=== PATIENT | male | born 1975 | race Caucasian/White ===

== ENCOUNTER → 2019-01-27 11:09 | Outpatient (POV) | payer OTHER, SELFPAY | PROVIDERS: Visit Provider Dermatology | DX: Z00.00 Encounter for general adult medical examination without abnormal findings (principal) ==

== ENCOUNTER → 2019-08-05 15:04 | Outpatient (CLI) | payer BC, SELFPAY | PROVIDERS: PCP Family Medicine; Visit Provider Family Medicine | DX: R40.4 Transient alteration of awareness (principal) | CPT/HCPCS: 93306 ==

== ENCOUNTER → 2021-10-11 11:47 | Outpatient (CLI) | payer BC, SELFPAY ==
[2021-10-12 16:49] LABS: Albumin 4.1 g/dL (2.9-4.4); Alpha-1-Globulin 0.2 g/dL (0.0-0.4); Alpha-2-Globulin 0.6 g/dL (0.4-1.0); Gamma Globulin 2.6 g/dL (0.4-1.8); Protein, Total 8.5 g/dL (6.0-8.5)
== END ==
PROVIDERS: PCP Family Medicine; Visit Provider Family Medicine
DX: R53.1 Weakness (principal); E88.09 Other disorders of plasma-protein metabolism, not elsewhere classified
CPT/HCPCS: 36415; 84155; 84165; 93225; 93226

== ENCOUNTER → 2021-10-21 09:33 | Outpatient (CLI) | payer BC, SELFPAY ==
[2021-10-21 10:26] LABS: Basophils # 0.1 K/mm3 (0-0.2); Basophils % 2.6 % (0.1-2.0); Eosinophils # 0.2 K/mm3 (0.0-0.4); Eosinophils % 3.2 % (0.1-12.0); Hematocrit 40.6 % (42.0-52.0); Hemoglobin 13.5 g/dL (14.1-18.0); Lymphocytes # 1.5 K/mm3 (0.7-4.5); Lymphocytes % 27.2 % (10-50); Mean Corpuscular HGB Conc 33.3 g/dL (31.8-35.4); Mean Corpuscular Hemoglobin 30.7 pg (27.0-31.2); Mean Corpuscular Volume 92.3 fl (80-94); Mean Platelet Volume 8.4 fl (7.4-10.4); Monocytes # 0.5 K/mm3 (0.1-1.0); Monocytes % 9.7 % (1.7-9.3); Neutrophils # 3.1 K/mm3 (1.8-7.8); Neutrophils % 57.3 % (37.0-80.0); Platelet Count 313 K/mm3 (142-424); Red Cell Distribution Width 13.4 % (11.5-17.5); White Blood Count 5.4 K/mm3 (4.8-10.8)
[2021-10-21 11:31] LABS: Alanine Aminotransferase 26 U/L (12-78); Albumin Level 4.5 g/dl (3.5-5.0); Albumin/Globulin Ratio 1.2 (1.1-1.8); Alkaline Phosphatase 76 U/L (38-126); Anion Gap 11.2 mEq/L (5-15); Aspartate Amino Transferase 31 U/L (17-59); Bilirubin,Total 0.4 mg/dl (0.2-1.3); Blood Urea Nitrogen 14 mg/dl (9-20); Calcium 9.2 mg/dl (8.4-10.2); Carbon Dioxide 27 mmol/L (22.0-30.0); Chloride 105 mmol/L (98-107); Chol/HDL Ratio 5.1 (1-3.5); Cholesterol 175 mg/dl (140-200); Estimated Glomerular Filt Rate 80 ml/min (>60); GFR (African American) 97 ML/MIN (>60); Globulin 3.7 g/dL (1.3-3.2); Glucose 94 mg/dl (74-100); HDL Cholesterol 34 mg/dl (40-60); Potassium 4.2 mmoL/L (3.5-5.1); Sodium 139 mmol/L (136-145); Total Protein,Serum 8.2 g/dl (6.3-8.2); Triglycerides 144 mg/dl (30-150); Uric Acid 5.6 mg/dl (3.5-8.5); VLDL Cholesterol 29 mg/dL (0-40)
[2021-10-21 11:43] LABS: C-Reactive Protein 0.6 mg/L (0-4); Direct LDL Cholesterol 86.57 mg/dL (100-129)
[2021-10-21 12:02] LABS: Thyroid Stimulating Hormone 1.59 uIU/mL (0.465-4.68)
[2021-10-21 12:54] LABS: Iron 125 ug/dL (49-181)
[2021-10-21 14:10] LABS: Erythrocyte Sedimentation Rate 37 mm/hr (0-15)
[2021-10-23 15:10] LABS: RA Latex Turbid. 61.2 IU/mL (<14.0)
[2021-10-24 08:34] LABS: Hepatitis C Antibody <0.1 s/co ratio (0.0-0.9)
[2021-10-24 12:23] LABS: Speckled Pattern >1:1280 (.)
[2021-10-28 19:49] LABS: Antinuclear Antibodies, IFA POSITIVE
== END ==
PROVIDERS: PCP Family Medicine; Visit Provider Family Medicine
DX: E88.09 Other disorders of plasma-protein metabolism, not elsewhere classified (principal); R53.1 Weakness; D89.2 Hypergammaglobulinemia, unspecified; Z13.220 Encounter for screening for lipoid disorders
CPT/HCPCS: 36415; 80053; 80061; 83540; 84443; 84550; 85025; 85651; 86038; 86140; 86431; 87380

== ENCOUNTER → 2021-11-08 07:37 | Outpatient (CLI) | payer BC, SELFPAY ==
--- NOTE | 2021-11-08 | CA_ITS ---
APPROVED REPORT Exam: Exercise Treadmill Technologist: Krystin Jaimes, Ht: 5 ft 11 in Wt: 173 lbs BSA: 1.98 m2 HR: 68 bpm BP: 128/67 mmHg Medical History Medications: Vitamins,,,,, Citlaporam,,,,, Stress Test Details Test: Srinath HR Resting HR: 71 bpm Max Heart Rate (APMHR): 174.302511 bpm Max HR Achieved: 184 bpm Target HR (85% APMHR): 147.378531 bpm % of APMHR: 105.75 Recovery HR: 117 bpm BP Resting BP: 130/64 mmHg Max BP: 170/64 mmHg Recovery BP: 135.0/64.0 mmHg ECG Resting ECG: NSR, rightward axis Clinical Exercise duration: 10:09 min Highest Stage Achieved: IV Exercise capacity: 12.8 METs Stress ECG Conclusion Exercised 10:09 into stage 4 of Srinath Protocol. Max HR: 184 % of PM: 106% Max BP: 170/64 METs: 12.8 Test stopped due to: SOA, leg fatigue Symptoms: lightheaded, nausea, mild chest tightness. Arrhythmias/Ectopy: Rare PVC. ST-T Changes: -1.5mm horizontal & downsloping ST depression inferiorly. Conclusion: EKG changes (+) for ischemia. GXT only (no imaging) Test Summary RECOVERY 05:33 0.0 0.0 117 . 135/ 64 . . REST . . . . . . . Standing REST 04:53 0.0 0.0 71 . 130/ 64 . . Stage 1 01:00 10.0 1.7 97 . . . . Stage 1 02:00 10.0 1.7 103 . . . . Stage 1 03:00 10.0 1.7 109 . 152/ 80 . . Stage 2 01:00 12.0 2.5 118 . . . . Stage 2 02:00 12.0 2.5 130 . . . . Stage 2 03:00 12.0 2.5 127 . 160/ 62 . . Stage 3 01:00 14.0 3.4 143 . . . . Stage 3 02:00 14.0 3.4 158 . . . . Stage 3 03:00 14.0 3.4 165 . 170/ 64 . . Stage 4 01:00 16.0 4.2 183 . . . . Stage 4 01:09 16.0 4.2 184 . . . Stop exercise at 10:09 RECOVERY 01:00 0.0 0.0 172 . . . . RECOVERY 02:00 0.0 0.0 143 . . . . RECOVERY 03:00 0.0 0.0 124 . 147/ 69 . . RECOVERY 04:00 0.0 0.0 115 . 149/ 74 . . RECOVERY 05:00 0.0 0.0 112 . 149/ 74 . . RECOVERY 05:33 0.0 0.0 117 . 135/ 64 . . Electronically signed by : Holden Gross MD 11/08/2021 16:52:28
== END ==
PROVIDERS: PCP Family Medicine; Visit Provider Family Medicine
DX: R07.89 Other chest pain (principal)
CPT/HCPCS: 93017

== ENCOUNTER → 2021-11-21 07:24 | Outpatient (CLI) | payer BC, SELFPAY ==
[2021-11-21 08:08] LABS: Basophils # 0.2 K/mm3 (0-0.2); Basophils % 2.7 % (0.1-2.0); Eosinophils # 0.2 K/mm3 (0.0-0.4); Eosinophils % 3.9 % (0.1-12.0); Hematocrit 41.4 % (42.0-52.0); Hemoglobin 13.8 g/dL (14.1-18.0); Lymphocytes # 1.6 K/mm3 (0.7-4.5); Lymphocytes % 27.6 % (10-50); Mean Corpuscular HGB Conc 33.3 g/dL (31.8-35.4); Mean Corpuscular Hemoglobin 31.3 pg (27.0-31.2); Mean Corpuscular Volume 93.9 fl (80-94); Mean Platelet Volume 8.3 fl (7.4-10.4); Monocytes # 0.6 K/mm3 (0.1-1.0); Monocytes % 10.2 % (1.7-9.3); Neutrophils # 3.2 K/mm3 (1.8-7.8); Neutrophils % 55.7 % (37.0-80.0); Platelet Count 269 K/mm3 (142-424); Red Blood Count 4.41 M/mm3 (4.60-6.20); Red Cell Distribution Width 13.5 % (11.5-17.5); White Blood Count 5.8 K/mm3 (4.8-10.8)
[2021-11-21 08:58] LABS: Anion Gap 10.3 mEq/L (5-15); Blood Urea Nitrogen 13 mg/dl (9-20); Calcium 9.1 mg/dl (8.4-10.2); Carbon Dioxide 30 mmol/L (22.0-30.0); Chloride 106 mmol/L (98-107); Estimated Glomerular Filt Rate 80 ml/min (>60); GFR (African American) 97 ML/MIN (>60); Glucose 96 mg/dl (74-100); Potassium 4.3 mmoL/L (3.5-5.1); Sodium 142 mmol/L (136-145)
== END ==
PROVIDERS: PCP Family Medicine; Visit Provider Physician Assistant
DX: Z01.812 Encounter for preprocedural laboratory examination (principal); Z20.822 Contact with and (suspected) exposure to COVID-19; R07.89 Other chest pain; R55 Syncope and collapse; R10.9 Unspecified abdominal pain; R23.2 Flushing; R94.31 Abnormal electrocardiogram [ECG] [EKG]; R94.39 Abnormal result of other cardiovascular function study
CPT/HCPCS: 36415; 80048; 85025; C9803; U0003; U0005

== ENCOUNTER 2021-11-22 09:54 | Day surgery (SDC) | payer BC, SELFPAY ==
[2021-11-22] VITALS (13 sets, daily range): BP systolic 109–138; BP diastolic 62–87; PULSE 62–75; RESP 17–19; TEMP 36.9; O2SAT 95–98; BMI 25.1
--- NOTE | 2021-11-22 | IR_ITS ---
APPROVED REPORT Patient Location: Outpatient PROCEDURES Left heart catheterization Left ventriculogram Selective coronary angiogram INDICATION Angina pectoris, Abnormal stress test Informed consent was obtained prior to the procedure. COMPLICATIONS NONE Estimated Blood Loss: LESS THAN 10 ML TECHNIQUE One percent lidocaine used to anesthetize the right anterior aspect of the wrist. The right radial artery was accessed via the Seldinger technique. A 6 Maori sheath was placed in the right radial artery. 2.5 mg of verapamil, 800 mcg of nitroglycerin, 1mg Lidocaine and 5000 U Heparin were given through the arterial sheath. The papa catheter was also used to perform left heart catheterization, left ventriculogram and selective coronary angiogram. At the end of the procedure the sheath was removed good hemostasis was achieved using Traclet band, patient was transferred to the postop holding area in stable condition. ANGIOGRAPHIC RESULTS The left main artery Normal The left anterior descending artery Normal The circumflex artery Normal The right coronary artery Dominant normal The TREJO ventriculogram reveals Normal 65% The left ventricular end-diastolic pressure 10 mmHg IMPRESSION Normal coronary arteries Normal ejection fraction Normal left ventricular end-diastolic pressure PLAN 1. Evaluation of noncardiac symptoms Electronically signed by : Jonathan Wang MD 11/22/2021 11:41:45
== END 2021-11-22 15:20 | disposition home or self-care (01) ==
LOC: CATHLAB 09:55
PROVIDERS: PCP Family Medicine; Visit Provider Internal Medicine
DX: R94.39 Abnormal result of other cardiovascular function study (principal); Z79.899 Other long term (current) drug therapy; R07.89 Other chest pain; R06.02 Shortness of breath; Z82.49 Family history of ischemic heart disease and other diseases of the circulatory system; R55 Syncope and collapse; R23.2 Flushing
CPT/HCPCS: 93458; 99152; C1725; C1769; J1644; Q9967

== ENCOUNTER → 2021-12-12 09:43 | Outpatient (CLI) | payer BC, SELFPAY ==
--- NOTE | 2021-12-12 09:48 | CT_ITS ---
FINAL REPORT TECHNIQUE: Axial images were obtained from the lung bases through the pubic symphysis before and after the administration of intravenous contrast. This study was performed with techniques to keep radiation doses as low as reasonably achievable (ALARA). Individualized dose reduction techniques using automated exposure control or adjustment of mA and/or kV according to the patient's size were employed. CLINICAL HISTORY: VASOVAGAL EPISODE,LEUKOPENIA,CHRONIC DIARRHEA..75 cc of isovue 370 saline flush FINDINGS: Precontrast images demonstrate no evidence of nephrolithiasis or hydronephrosis. There are calcified granulomas in the spleen. Abdomen: The lung bases are clear. The liver parenchyma is homogeneous. The gallbladder is present. The spleen, pancreas and adrenal glands are unremarkable. The kidneys enhance normally. There is no mass or adenopathy identified. There is no evidence of bowel obstruction. There are scattered diverticula throughout the sigmoid colon. Pelvis: The appendix is normal. The urinary bladder is unremarkable. There is no mass, free fluid or adenopathy. There is mucosal thickening of the rectum up to 1 cm concerning for acute proctitis. IMPRESSION: Mucosal thickening of the rectum concerning for acute proctitis. Reviewed, Interpreted and Dictated by Aki Bryan MD Transcribed by Scooter Saldaña Authenticated and [facility]
== END ==
PROVIDERS: PCP Family Medicine; Visit Provider Family Medicine
DX: R55 Syncope and collapse (principal); E88.09 Other disorders of plasma-protein metabolism, not elsewhere classified; D72.819 Decreased white blood cell count, unspecified; K52.9 Noninfective gastroenteritis and colitis, unspecified
CPT/HCPCS: 74170; Q9967

== ENCOUNTER → 2022-07-04 08:03 | Outpatient (CLI) | payer BC, SELFPAY ==
--- NOTE | 2022-07-04 | US_ITS ---
FINAL REPORT CLINICAL HISTORY: RUQ PAIN COMPARISON: None FINDINGS: Sonographic images of the right upper quadrant were obtained. The pancreas is partially obscured. The liver is fatty infiltrated. The gallbladder appears normal without evidence of gallstones.There is no evidence of biliary ductal dilatation.The common duct measures 2 mm. Limited images of the right kidney are unremarkable. IMPRESSION: Fatty infiltration of the liver. Reviewed, Interpreted and Dictated by David Mercer III, MD Transcribed by Ximena Joe Authenticated and [facility]
== END ==
PROVIDERS: PCP Family Medicine; Visit Provider Family Medicine
DX: R10.11 Right upper quadrant pain (principal)
CPT/HCPCS: 76705

== ENCOUNTER 2024-03-03 07:44 | Outpatient (CLI) | payer BC, SELFPAY ==
--- NOTE | 2024-03-03 07:54 | US_ITS ---
FINAL REPORT CLINICAL HISTORY: RUQ PAIN COMPARISON: 07/04/2022 FINDINGS: Sonographic images of the right upper quadrant were obtained. The pancreas is partially obscured. Fatty infiltration of the liver is present. The gallbladder appears normal without evidence of gallstones.There is no evidence of biliary ductal dilatation.The common duct measures 4mm. Limited images of the right kidney are unremarkable. IMPRESSION: Fatty infiltration of the liver, no acute intra-abdominal abnormality identified. Reviewed, Interpreted and Dictated by Aki Bryan MD Transcribed by Evelyne Villegas Authenticated and . [facility]
[2024-03-03 08:59] LABS: Basophils # 0.1 K/mm3 (0-0.2); Basophils % 1.2 % (0.1-2.0); Eosinophils # 0.1 K/mm3 (0.0-0.4); Eosinophils % 2.5 % (0.1-12.0); Hematocrit 42.6 % (42.0-52.0); Hemoglobin 13.9 g/dL (14.1-18.0); Lymphocytes # 1.5 K/mm3 (0.7-4.5); Lymphocytes % 30.1 % (10-50); Mean Corpuscular HGB Conc 32.6 g/dL (31.8-35.4); Mean Corpuscular Hemoglobin 31.7 pg (27.0-31.2); Mean Corpuscular Volume 97.1 fl (80-94); Mean Platelet Volume 8.6 fl (7.4-10.4); Monocytes # 0.5 K/mm3 (0.1-1.0); Monocytes % 10.6 % (1.7-9.3); Neutrophils # 2.8 K/mm3 (1.8-7.8); Neutrophils % 55.5 % (37.0-80.0); Platelet Count 260 K/mm3 (142-424); Red Blood Count 4.38 M/mm3 (4.60-6.20); Red Cell Distribution Width 13.6 % (11.5-17.5); White Blood Count 5.1 K/mm3 (4.8-10.8)
[2024-03-03 09:19] LABS: Erythrocyte Sedimentation Rate 26 mm/hr (0-15)
[2024-03-03 09:30] LABS: Alanine Aminotransferase 22 U/L (12-78); Albumin Level 4.4 g/dl (3.5-5.0); Albumin/Globulin Ratio 1.3 (1.1-1.8); Alkaline Phosphatase 60 U/L (38-126); Aspartate Amino Transferase 29 U/L (17-59); Bilirubin,Total 0.4 mg/dl (0.2-1.3); Blood Urea Nitrogen 15 mg/dl (9-20); Calcium 9.3 mg/dl (8.4-10.2); Carbon Dioxide 31 mmol/L (22.0-30.0); Chloride 106 mmol/L (98-107); Chol/HDL Ratio 4.6 (1-3.5); Cholesterol 175 mg/dl (140-200); Estimated Glomerular Filt Rate 80 ml/min (>60); GFR (African American) 97 ML/MIN (>60); Globulin 3.4 g/dL (1.3-3.2); Glucose 90 mg/dl (74-100); HDL Cholesterol 38 mg/dl (40-60); Sodium 140 mmol/L (136-145); Total Protein,Serum 7.8 g/dl (6.3-8.2); Triglycerides 136 mg/dl (30-150); Uric Acid 4.7 mg/dl (3.5-8.5); VLDL Cholesterol 27 mg/dL (0-40)
[2024-03-03 09:41] LABS: C-Reactive Protein 0.5 mg/L (0-4); Direct LDL Cholesterol 91.89 mg/dL (100-129)
[2024-03-03 09:49] LABS: Hemoglobin A1C 5.4 % (4.0-6.0)
[2024-03-03 10:30] LABS: Ferritin 100 ng/ml (17.9-464)
[2024-03-04 15:26] LABS: RA Latex Turbid. 56.1 IU/mL (<14.0); Transferrin 262 mg/dL (177-329)
[2024-03-05 16:29] LABS: Speckled Pattern >1:1280 (.)
[2024-04-14 13:59] LABS: Antinuclear Antibodies, IFA POSITIVE
== END 2024-03-03 23:59 | disposition home or self-care (01) ==
PROVIDERS: PCP Family Medicine; Visit Provider Family Medicine
DX: R10.11 Right upper quadrant pain (principal); K76.0 Fatty (change of) liver, not elsewhere classified; M35.00 Sjogren syndrome, unspecified; E88.09 Other disorders of plasma-protein metabolism, not elsewhere classified; R25.1 Tremor, unspecified; R41.3 Other amnesia
CPT/HCPCS: 36415; 76705; 80050; 80053; 80061; 82728; 83036; 84443; 84466; 84550; 85025; 85651; 86038; 86140; 86431

== ENCOUNTER 2024-03-09 10:29 | Outpatient (CLI) | payer BC, SELFPAY ==
--- NOTE | 2024-03-09 10:39 | NM_ITS ---
FINAL REPORT CLINICAL HISTORY: RUQ PAIN COMPARISON: None FINDINGS: Sequential anterior projection images of the abdomen were obtained after the intravenous injection of 8.05 mCi technetium 99m Choletec. There is normal uptake of radiotracer by the liver. The bile ducts are visualized by 10 minutes. Gallbladder activity is seen by 10 minutes. Bowel activity is noted by 10 minutes. After 1 hour, 1.6 ?g of CCK was injected intravenously for calculation of gallbladder ejection fraction. The gallbladder ejection fraction is 19%, which is which is abnormally low but nonspecific, and can be seen in patients with chronic cholecystitis.. IMPRESSION: No evidence of cystic duct or bile duct obstruction. Low gallbladder ejection fraction of 19%. This is an abnormally low ejection fraction, however nonspecific. This can be seen in patients with chronic cholecystitis. Reviewed, Interpreted and Dictated by David Mercer III, MD Transcribed by Evelyne Villegas Authenticated and [facility]
[2024-03-09] MEDS: SODIUM CHLORIDE 0.9% 10ML SYR (RAD ONLY) 10 ML IV (10:45)
[2024-03-09] MEDS: SINCALIDE 1.6 MCG in 0.9 % SODIUM CHLORIDE 50 ML 100 MCG IV (11:45)
[2024-03-09] MEDS: ISOTOPE CHOLETECH;1 DOSE (UP TO 15 MCI) IV (12:49)
== END 2024-03-09 23:59 | disposition home or self-care (01) ==
PROVIDERS: PCP Family Medicine; Visit Provider Family Medicine
DX: R10.11 Right upper quadrant pain (principal); K76.0 Fatty (change of) liver, not elsewhere classified
CPT/HCPCS: 78227; A9537; J2805

== ENCOUNTER 2024-04-03 07:48 | Outpatient (CLI) | payer BC, SELFPAY ==
--- NOTE | 2024-04-03 07:49 | CT_ITS ---
PROCEDURE INFORMATION: Exam: CT Abdomen And Pelvis With Contrast Exam date and time: 04/03/2024 7:56 AM Age: 48 years old Clinical indication: Other: Diarrhea; Additional info: Diarrhea, gb issues TECHNIQUE: Imaging protocol: Computed tomography of the abdomen and pelvis with contrast. Radiation optimization: All CT scans at this facility use at least one of these dose optimization techniques: automated exposure control; mA and/or kV adjustment per patient size (includes targeted exams where dose is matched to clinical indication); or iterative reconstruction. Contrast material: ISOVUE; Contrast volume: 75 ml; Contrast route: IV; COMPARISON: CT ABDOMEN WO/W CON 12/12/2021 10:04 AM FINDINGS: Liver: Diffuse fatty infiltration of the liver. Gallbladder and biliary ducts: No acute abnormality. No calcified stones. No ductal dilation. Pancreas: No acute abnormality. No ductal dilation. Spleen: No acute abnormality. Adrenal glands: No significant or acute abnormality. Kidneys and ureters: No acute abnormality. No hydronephrosis. Stomach and bowel: Nondistended stomach. GI contrast within small bowel and colon. No significant large or small bowel distention. Mild thickening and fat stranding along the descending and distal colon suggestive of nonspecific distal colitis. No evidence of diverticulitis. Appendix: Grossly normal nondilated visualized appendix. Intraperitoneal space: No significant fluid collection. No free air. Vasculature: No acute abnormality. No abdominal aortic aneurysm. Lymph nodes: No enlarged lymph nodes. Urinary bladder: Nondistended urinary bladder. Reproductive: Unremarkable as visualized. Bones/joints: No acute osseous abnormality. No dislocation. Soft tissues: No significant soft tissue abnormalities. IMPRESSION: 1. Mild thickening and fat stranding along the descending and distal colon suggestive of nonspecific distal colitis. 2. Diffuse fatty infiltration of the liver.
[2024-04-03] MEDS: IOPAMIDOL-370 (76%);100ML BOTTLE 75 ML IV (08:10)
[2024-04-03] MEDS: SODIUM CHLORIDE 0.9% 10ML SYR (RAD ONLY) 10 ML IV (08:10)
[2024-04-03] MEDS: BARIUM SULFATE(READI-CAT2);450ML BOTTLE 450 ML PO (08:51)
== END 2024-04-03 23:59 | disposition home or self-care (01) ==
LOC: RAD 07:49
PROVIDERS: PCP Family Medicine; Visit Provider Surgery
DX: R10.31 Right lower quadrant pain (principal)
CPT/HCPCS: 74177; Q9967

== ENCOUNTER 2024-04-23 06:02 | Day surgery (SDC) | payer BC, SELFPAY ==
[2024-04-21 10:43] VITALS: BMI 25.1
[2024-04-23 06:25] VITALS: BP 129/80; PULSE 87; RESP 18; TEMP 36.9; O2SAT 97
[2024-04-23] MEDS: LACTATED RINGERS 1000ML 1,000 ML 25 ML IV (06:35)
--- NOTE | 2024-04-23 06:46 | EXP.ANES.CKL ---
[facility] Disclaimer: The information contained in this section may have been updated after the patient was seen, as this information can be updated by other users. Medical History No significant past medical history Surgical History History of colonoscopy History of sinus surgery Family History (Updated 04/23/24 @ 06:27 by Kati Nelson RN) Other Asthma CHF (congestive heart failure) Family history of blood clots Heart attack Hypertension Social History (Updated 04/23/24 @ 06:29 by Kati Nelson RN) Smoking Status: Never smoker second hand exposure: No alcohol intake: current alcohol intake frequency: a few times a week substance use type: denies use current occupational status: employed Travel in the last 8 weeks: None household members: spouse housing: house current occupational exposures/hazards: No caffeine: Yes [facility] Anesthesia Checklist Patient Identification Patient Identification: Arm Band and Family Structural Data Admitted From: Home Planned Operative Procedure/s: Colonotcopy Consent for Planned Operative Procedure(s) Verified: Yes Verified Documents: Surgical Consent and History and Physical NPO Status Verified Time NPO: 00:00 Additional verifications Patient : No Anesthesia Reactions: No Hx Blood Transfusions: No Blood Transfusion Reaction: No Cephalosporin Allergy: No Previous Colonoscopy: Yes Airway Assessment Mallampati Score:: Class III C-Spine Mobility Assessed: Yes Dentition: Good Dentition Neurological Assessment Level of Consciousness: Awake, Alert, Appropriate and Follows Commands Hx Seizures: No Numbness or tingling in extremities: No Anesthesia Plan Anesthesia Risk discussed: Yes ASA Class: II Anesthesia Type: MAC
--- NOTE | 2024-04-23 07:26 | P.HP_ITS ---
History of Present Illness *Admission Date: 04/23/24 *Reason for visit:: Right upper quadrant abdominal pain/bloating/gassiness and loose bowel move *History of present illness: Mr. Carlton is a 48-year-old gentleman who is here for diagnostic colonoscopy secondary to right upper quadrant abdominal pain, bloating and intermittent looser bowel movements.The patient's CAT scan had shown mild thickening and fat stranding along the descending and distal colon. The patient does have borderl ine anemia with hemoglobin 13.9. The examination is deemed medically necessary for colonoscopy. The patient has been seen, interviewed and examined prior to the procedure by both myself and the anesthesia provider. [facility] Disclaimer: The information contained in this section may have been updated after the patient was seen, as this information can be updated by other users. Medical History (Updated 04/23/24 @ 07:32 by Jeronimo Pink II, MD) No significant past medical history Surgical History History of colonoscopy History of sinus surgery Family History (Updated 04/23/24 @ 06:27 by Kati Nelson RN) Other Asthma CHF (congestive heart failure) Family history of blood clots Heart attack Hypertension Social History (Updated 04/23/24 @ 06:29 by Kati Nelson RN) Smoking Status: Never smoker second hand exposure: No alcohol intake: current alcohol intake frequency: a few times a week substance use type: denies use current occupational status: employed Travel in the last 8 weeks: None household members: spouse housing: house current occupational exposures/hazards: No caffeine: Yes Other Medical History Have you received the Flu Vaccine for this season: Yes Have you received the Pneumonia Vaccine: No Review of Systems Review of Systems Review of systems (narrative): Negative *Cardiovascular Comments: Negative *Gastrointestinal Comments: Negative *Genitourinary Comments: Negative *Musculoskeletal Comments: Negative *Neurologic Comments: Negative Meds Home Medications and Allergies Home Medications ?Medication ?Instructions ?Recorded ?Confirmed ?Type citalopram 20 mg tablet 20 mg PO DAILY . 11/16/21 04/23/24 History multivitamin (Multiple Vitamins 1 tab PO DAILY . 11/16/21 04/23/24 History tablet) Bifidobacterium infantis 4 mg 4 mg PO DAILY 03/10/24 04/23/24 History capsule (Align) sodium sul 1.479 gram-potas ch See Rx Instructions PO PER PKG DIR 04/09/24 Rx 0.188 gram-magnes sul 0.225 gram colonscopy #24 tabs tablet (Sutab) calcium polycarbophil 625 mg tablet 0 mg PO DAILY 04/23/24 04/23/24 History New Prescriptions to Start Prescriptions: Allergies Allergy/AdvReac Type Severity Reaction Status Date / Time ibuprofen (IBUPROFEN) Allergy Unknown Sneezing, Verified 04/23/24 06:20 itching shellfish derived Allergy rash Verified 04/07/24 10:29 sulfamethoxazole (From AdvReac Hives Verified 04/07/24 10:29 Bactrim) trimethoprim (From Bactrim) AdvReac Hives Verified 04/07/24 10:29 Exam Data for Last 24 hours Vital signs and Labs for Last 24 Hours: Temp Pulse Resp BP Pulse Ox O2 Del Method 98.5 F 87 18 129/80 97 Room Air 04/23/24 06:25 04/23/24 06:25 04/23/24 06:25 04/23/24 06:25 04/23/24 06:25 04/23/24 06:25 I & O for Last 24 hours: Intake & Output 04/20/24 04/21/24 04/22/24 04/23/24 23:59 23:59 23:59 23:59 Weight 180 lb *Routine HEENT Exam Head: Present normocephalic Eye: Present EOMI and PERRL ENT: Present mucous membranes moist *Routine Neck Exam Neck: Present supple *Routine Respiratory Exam Respiratory: Present CTA bilaterally *Routine Cardiovascular Exam Cardiovascular: Present RRR *Routine Abdominal Exam Abdominal: Present soft and normoactive bowel sounds; Absent tenderness *Routine Rectal Exam Rectal:: deferred *Routine Genitalia Exam Genitalia:: deferred *Routine Extremities Exam Extremities: Absent cyanosis, clubbing or edema *Routine Skin Exam Skin: Present warm; Absent rash *Routine Neurological Exam Neurological: Present alert and oriented X3 Assessment and Plan *Assessment and plan (1) Right upper quadrant abdominal pain: Status: Acute Category: Medical Code(s): R10.11 - Right upper quadrant pain (2) Loose bowel movements: Status: Acute Category: Medical Code(s): R19.5 - Other fecal abnormalities (3) Abnormal CAT scan: Status: Acute Category: Medical Code(s): R93.89 - Abnormal findings on diagnostic imaging of other specified body structures (4) Anemia: Status: Acute Category: Medical Code(s): D64.9 - Anemia, unspecified Plan A/P: 1. Right upper quadrant abdominal pain, loose bowel movements, bloating and abnormal CAT scan with thickening of the descending colon and anemia is the preprocedural diagnosis. The patient will be anesthetized/sedated using MAC sedation. The patient has been seen and examined. Cardiac and lung assessment prior to the examination is stable. Proceed with planned colonoscopy
--- NOTE | 2024-04-23 07:32 | HMH.PROCNOTE ---
[facility] Procedure Note Date: 04/23/24 Time: 07:47 Procedure Note:: Colonoscopy Procedure Report: Colonoscopy with cold biopsies Endoscopist: Jeronimo Pink II, MD Referring physician: Efren Roman MD/David Stephens MD Date of Procedure: April 23, 2024 Equipment: Olympus 190 variable stiffness pediatric colonoscope Sedation: MAC sedation Indication: Mr. Carlton is a 48-year-old gentleman who is here for diagnostic colonoscopy. The patient had seen me in the office on March 10, 2024 with the new onset of right upper quadrant abdominal pain. His ultrasound had shown some liver steatosis but normal gallbladder in appearance. There was no evidence of gallstones or cholecystitis. The common bile duct was normal in size. He had a subsequent HIDA scan that showed a 19% gallbladder ejection fraction. He did not have reproducible symptoms with cholecystokinin. He does have borderline anemia with hemoglobin 13.9. His liver chemistries are normal. He has not completed the enzyme testing which I had recommended. He did have a CT scan of the abdomen showing mild thickening and fat stranding along the descending and distal colon. He does have intermittent looser bowel movements with urgency and frequency. He does note some vagal symptoms with tingling into his right arm and lightheadedness with slight nausea. His colonoscopy in 2015 was normal except for internal hemorrhoids. The patient does get bloating and gassiness. He has improved some with the Konsyl fiber supplementation, dietary measures and Iberogast. Procedure: Prior to the procedure, a history and physical exam was performed, and patient's medications and allergies were reviewed. The risks, benefits and alternatives of the sedation and procedure were discussed with the patient. All questions were answered and informed consent was obtained. The patient was brought to the procedure room. Patient identification and proposed procedure were verified by the physician and the nurse. The patient was placed in a left lateral decubitus position and the scope was passed under direct vision. Throughout the procedure, the patient's blood pressure, pulse, and oxygen saturations were monitored continuously. The colonoscopy was accomplished without difficulty. The patient tolerated the procedure well. Findings: On digital rectal examination there was normal rectal tone. There were no external hemorrhoids. The colonoscope was introduced through the anal canal to the rectum and advanced to the cecum. The ileocecal valve and appendiceal orifice were identified. The scope was advanced a short distance into the ileum which appeared grossly normal. The scope was then withdrawn into the colon. The cecum, ascending, transverse, descending, sigmoid and rectum were grossly normal. Random cold biopsies were taken from the descending/sigmoid colon to rule out microscopic colitis. There were no mucosal abnormalities identified. Upon retroflexion within the rectum there were grade 2 internal hemorrhoids.The preparation was excellent throughout with Center Preparation Score of 9. The cecal time was 12 minutes. Impression: 1. Normal colonoscopy with intubation of the terminal ileum 2. Grade 2 internal hemorrhoids Plan: Even though the colonoscopy was normal, I do feel the patient is improving and this is more likely to be functional abdominal pain/hepatic flexure syndrome. Hepatic flexure syndrome is a term used to describe bloating, muscle spasms of the colon and upper abdominal pain on the right side and is thought to be caused by trapped gas and stool at the hepatic flexure/curvature of the colon which is in the right upper colon. The pain can be excruciating and debilitating. I would continue the dietary measures, psyllium/Konsyl and Iberogast. I would like for him to complete the testing for enzyme deficiencies (i.e. EPI and CSID). I would consider trial of buspirone for his functional abdominal pain.
[2024-04-23 07:34] VITALS: O2SAT 98
[2024-04-23 07:51] VITALS: BP 120/68; PULSE 88; RESP 16; TEMP 36.4; O2SAT 93
[2024-04-23 08:01] VITALS: BP 118/71; RESP 18; O2SAT 95
[2024-04-23 08:11] VITALS: BP 124/75; PULSE 69; RESP 16; O2SAT 98
[2024-04-23 08:21] VITALS: BP 125/74; PULSE 65; RESP 18; O2SAT 98
== END 2024-04-23 08:26 | disposition home or self-care (01) ==
PROVIDERS: PCP Family Medicine; Visit Provider Internal Medicine Gastroenterology
PROC: (CPT 45380; principal; 2024-04-23 07:30)
DX: R10.11 Right upper quadrant pain (principal); R19.5 Other fecal abnormalities; R93.89 Abnormal findings on diagnostic imaging of other specified body structures; D64.9 Anemia, unspecified; K59.89 Other specified functional intestinal disorders; R10.9 Unspecified abdominal pain; K64.1 Second degree hemorrhoids
CPT/HCPCS: 45380; J7120